=== PATIENT | female | born 1955 | race Caucasian/White ===

== ENCOUNTER 2020-06-07 16:00 | Outpatient (REF) | payer MEDICARE, SELFPAY ==
--- NOTE | 2020-06-07 | MM_ITS ---
EXAMINATION: MM SCREENING DIGITAL BREAST TOMOSYNTHESIS, BILATERAL CLINICAL INFORMATION: Screening. Asymptomatic. The lifetime risk of breast cancer based on the Tyrer-Cuzick Model is 5.1%. COMPARISON: Mammography: 04/16/2019 and studies dating back to 11/14/2009. TECHNIQUE: Digital breast tomosynthesis is performed in both the craniocaudal and mediolateral oblique views along with computer-aided detection (CAD). Synthesized 2D images are generated from the tomosynthesis. FINDINGS: The breasts are extremely dense, which lowers the sensitivity of mammography (ACR BI-RADS breast composition Category d). There is a stable parenchymal pattern within the right breast. Within the anterior aspect of the left breast on mediolateral oblique projection, there is a density about the inferior aspect measuring approximately 1.4 x 1.3 cm in size. There is also a density at nipple level measuring approximately 1.4 x 1.3 cm in size which may represent superimposition of fibroglandular tissue. Spot compression films of the left breast are recommended. MM/MM tomosynthesis screening BI IMPRESSION: Left breast densities for further evaluation as described. ASSESSMENT: BI-RADS 0: Incomplete - Need Additional Imaging Evaluation RECOMMENDATION: 1. Additional views of the left breast. 2. Targeted ultrasound if warranted after review of the additional views. 3. Radiology department staff will contact the patient for additional imaging. This patient's information was entered into a reminder system with a target due date for their next mammogram.
== END 2020-06-07 16:01 | disposition home or self-care (01) ==
LOC: HO.MAMMO 16:00
PROVIDERS: PCP Internal Medicine; Visit Provider Internal Medicine
DX: Z12.31 Encounter for screening mammogram for malignant neoplasm of breast (principal)
CPT/HCPCS: 77063; 77067

== ENCOUNTER 2020-07-12 08:31 | Outpatient (REF) | payer MEDICARE, SELFPAY ==
--- NOTE | 2020-07-12 08:38 | MM_ITS ---
EXAMINATION: MM DIGITAL DIAGNOSTIC MAMMOGRAM, LEFT US BREAST, LEFT CLINICAL INFORMATION: Abnormal screening mammogram. Density in the anterior aspect of the left breast. Density in the inferior aspect of the left breast. COMPARISON: Previous left mammography 06/07/20, 04/16/19, 03/31/18, 03/30/15 Imaging was obtained of the left breast(s). TECHNIQUE: Digital breast imaging including tomosynthesis is performed in Craniocaudal and mediolateral oblique projections using spot compression. Full field digital left mammography using digital breast Tomosynthesis in the medial lateral projection. Digital unilateral left breast tomosynthesis (3D mammography). Computer aided diagnosis was not utilized during the interpretation of this study. Targeted sonographic evaluation of the left breast was performed using a high frequency linear transducer. FINDINGS: Breast density: The breasts are extremely dense, which lowers the sensitivity of mammography (breast composition category: d) The focal asymmetry in the 5:00 position 3 cm from the left nipple becomes less prominent. The asymmetry in the medial left breast becomes less prominent. There is no suspicious calcification. No distortion. ULTRASOUND FINDINGS: The left breast anterior depth was examined extensively. No suspicious mass. No suspicious area of altered echotexture. No cyst was demonstrated. MM/MM tomosynthesis added views L IMPRESSION: The asymmetry demonstrated on mammography becomes less prominent. No suspicious sonographic abnormality. Recommend short interval diagnostic left mammography including digital breast Tomosynthesis ASSESSMENT: BI-RADS 3-probably benign RECOMMENDATIONS: Short interval follow-up in 6 months. Recommend diagnostic left mammography including digital breast Tomosynthesis in 6 months. Written and verbal communication of these findings and recommendations was given to the patient at the time of the examination.
== END 2020-07-12 08:32 | disposition home or self-care (01) ==
LOC: HO.MAMMO 08:31
PROVIDERS: Visit Provider Internal Medicine
DX: R92.2 Inconclusive mammogram (principal)
CPT/HCPCS: 76642; 77061; 77065

== ENCOUNTER 2020-07-12 15:14 | Outpatient (REF) | payer MEDICARE, SELFPAY | END 2020-07-12 15:15 | disposition home or self-care (01) | LOC: HO.LAB 15:14 | PROVIDERS: Visit Provider Internal Medicine | DX: Z20.828 Contact with and (suspected) exposure to other viral communicable diseases (principal) | CPT/HCPCS: C9803; U0003 ==

== ENCOUNTER 2020-08-02 07:42 | Day surgery (SDC) | payer MEDICARE, SELFPAY ==
[2020-07-25 10:03] VITALS: BMI 29.9
--- NOTE | 2020-08-01 09:24 | HO.ANESPROP2 ---
HPI - Anesthesia Eval Consult details Narrative: 65yo F for Colonoscopy PMFSH Past Medical History Medical History Osteopenia Surgical History Surgical History H/O oral surgery Hx of bilateral cataract extraction Hx of colonoscopy Hx of tubal ligation Social History Social History Smoking Status: Never smoker Advance Directives: No Advance Directives Information Provided: No Advance Directives on File: No Meds Allergies Allergy/AdvReac Type Severity Reaction Status Date / Time No Known Allergies Allergy Verified 07/24/20 15:19 Home Medications Medication Instructions Recorded Confirmed Type bisacodyl 2 tab PO BID 07/24/20 07/24/20 History peg 3350-electrolytes [GaviLyte-G] PO DIRECTED 07/24/20 History Exam Exam Date and Time: August 01, 2020 0924 Height,Weight and Vital Signs: Height 5 ft 5 in Weight 81.647 kg Assessment and Plan Assessment Anesthesia Assessment: Chart Reviewed
[2020-08-02 08:09] VITALS: BP 116/72; PULSE 75; RESP 18; TEMP 36.1; O2SAT 100
[2020-08-02] MEDS: Lactated Ringers 1,000 ML 100 ML IVCONT (08:20)
--- NOTE | 2020-08-02 08:20 | HO.ANESPROP2 ---
[facility] Past Medical History Medical History Osteopenia Surgical History Surgical History H/O oral surgery Hx of bilateral cataract extraction Hx of colonoscopy Hx of tubal ligation Social History Social History Smoking Status: Never smoker Advance Directives: No Advance Directives Information Provided: No Advance Directives on File: No Meds Allergies Allergy/AdvReac Type Severity Reaction Status Date / Time No Known Allergies Allergy Verified 07/24/20 15:19 Home Medications Medication Instructions Recorded Confirmed Type bisacodyl 2 tab PO BID 07/24/20 07/24/20 History peg 3350-electrolytes [GaviLyte-G] PO DIRECTED 07/24/20 History Exam Exam Date and Time: August 02, 2020 0820 Height,Weight and Vital Signs: Height 5 ft 5 in Weight 81.647 kg Last Vital Signs Temp 97.0 F 08/02/20 08:09 Pulse 75 08/02/20 08:09 Resp 18 08/02/20 08:09 BP 116/72 08/02/20 08:09 Pulse Ox 100 08/02/20 08:09 Airway Mallampati Class: III TM Dist: >3cm Neck ROM: Full Denture: Upper and Lower Heart: RRR Lungs: CTA
--- NOTE | 2020-08-02 09:12 | MHC.SHP ---
Pre-Procedural Eval Section B Chief Complaint: hx polyps Relevant Family History (Specify if Yes): No Relevant Social History: None Present Medications: see Short Stay Collaborative assessment Medical History: Significant History (osteopenia) History of Previous Operations: Relevant previous surgery/procedure and date(s) (H/O oral surgery Hx of bilateral cataract extraction Hx of colonoscopy Hx of tubal ligation) Allergies: Allergies Allergy/AdvReac Type Severity Reaction Status Date / Time No Known Allergies Allergy Verified 07/24/20 15:19 Review of Systems Sugical H&P ROS: Negative: Constitution, Cardiovascular, Respiratory, Neurological, Psychiatric, Hem-Onc, Allergic/Immunologic, Gastrointestinal, Genitourinary, Musculoskeletal, Integumentary, Endocrine and Eyes/Ears/Nose/Throat Exam Surgical H&P Exam: Normal: HEENT, Normal: Heart, Normal: Lungs, Normal: Extremities, Normal: Abdomen, Normal: Skin and Normal: Neurological Plan Diagnosis/Plan: Unchanged I have reviewed the history and physical and performed a pertinent physical examination on my patient. No changes have occurred unless specified.
--- NOTE | 2020-08-02 09:13 | PM.OP ---
Brief Operative Note Date of Service: 08/02/20 Pre-op diagnosis: hx of polyps Post-op diagnosis: same Procedure: s Operative Information Procedure Description: Colonoscopy COLONOSCOPY Instrument: Olympus variable stiffness pediatric scope 190L Colonoscopy Monitoring: Vital signs and clinical assessment, continuous EKG monitoring, Pulse oximetry, Carbon Dioxide monitoring and blood pressure monitoring were done throughout the procedure. Colon withdrawal time was 9 minutes. Procedure: The patient was placed in the left lateral decubitis position and pre-procedure medications were administered. After a digital rectal examination of the ano-rectum, the video colonoscope was inserted into the rectum and advanced through the colon to the cecum/TI. The colonoscope was slowly withdrawn in a retrograde panoramic fashion and the colon mucosa was carefully examined including a retroflexed view of the rectum. Findings and interventions are described below. Procedure Difficulty:easy Findings: Terminal Ileum-normal Cecum:normal Ascending Colon: 6-8 mm sessile polyp removed with forceps Transverse Colon -normal Descending Colon:normal Sigmoid Colon: normal Rectum: Retroflexion with small internal hemorrhoids, grade I Anorectum - normal Colon preparation: [place] Bowel Preparation Scale Right colon; 3 Transverse colon: 3 Left colon; 3 (0 = Unprepared colon segment with mucosa not seen due to solid stool that cannot be cleared. 1 = Portion of mucosa of the colon segment seen, but other areas of the colon segment not well seen due to staining, residual stool and/or opaque liquid. 2 = Minor amount of residual staining, small fragments of stool and/or opaque liquid, but mucosa of colon segment seen well. 3 = Entire mucosa of colon segment seen well with no residual staining, small fragments of stool or opaque liquid) Impression and Post Procedure Diagnosis: polyp internal hemorrhoids Plan: High fiber diet leaflet Avoid straining at stool, epsom salts and sitz bath, anusol supps or cream Repeat Colonoscopy in 5-7 years or earlier if clinically indicated Above findings were reviewed with the patient and relevant handouts were provided if indicated. Surgeon: Allen Raya MD Anesthesia: MAC Estimated blood loss (mL): 0 Condition: stable Disposition: PACU
[2020-08-02 09:45] VITALS: BP 124/65; PULSE 62; RESP 16; TEMP 36.1; O2SAT 98
[2020-08-02 10:00] VITALS: BP 133/64; PULSE 64; RESP 14; TEMP 36.3; O2SAT 99
--- NOTE | 2020-08-02 10:31 | HO.POSTANES ---
Post Anesthesia Evaluation Post Anesthesia Evaluation Vital Signs: Vital Signs Temp Pulse Resp BP Pulse Ox 08/02/20 10:00 97.4 F 64 14 133/64 99 08/02/20 09:45 97 F 62 16 124/65 98 08/02/20 08:09 97.0 F 75 18 116/72 100 Anesthesia: Monitored Mental Status: Awake Pain Control: Satisfactory Nausea/Vomiting: None Hydration: Adequate Anesthesia-Related Issues: No Anes. Related Issues
== END 2020-08-02 10:34 | disposition home or self-care (01) ==
PROVIDERS: PCP Internal Medicine; Visit Provider Internal Medicine Gastroenterology
PROC: 0DJD8ZZ Inspection of Lower Intestinal Tract, Via Natural or Artificial Opening Endoscopic (ICD-10-PCS; CPT 45378; principal; 2020-08-02 09:20)
DX: Z12.11 Encounter for screening for malignant neoplasm of colon (principal); Z86.010 Personal history of colon polyps; D12.2 Benign neoplasm of ascending colon; K64.0 First degree hemorrhoids; M85.80 Other specified disorders of bone density and structure, unspecified site; E66.9 Obesity, unspecified; Z98.51 Tubal ligation status
CPT/HCPCS: 45380; 88305

== ENCOUNTER 2021-01-30 12:01 | Outpatient (REF) | payer MEDICARE, SELFPAY ==
--- NOTE | ~2021-01-30 | MM_ITS ---
EXAMINATION: MM DIAGNOSTIC DIGITAL BREAST TOMOSYNTHESIS, LEFT CLINICAL INFORMATION: Six-month follow up question left breast masses. COMPARISON: Mammography: July 12, 2020 and studies dating back to November 24, 2013 TECHNIQUE: Digital breast tomosynthesis is performed in both the craniocaudal and mediolateral oblique views along with computer-aided detection (CAD). Synthesized 2D images are generated from the tomosynthesis. FINDINGS: The breasts are extremely dense, which lowers the sensitivity of mammography (ACR BI-RADS breast composition Category d). There are no significant masses, abnormal calcifications, or other abnormalities. No persistent suspicious nodules identified. Results are provided to the patient at time of visit by the technologist. MM/MM tomosynthesis diagnostic LT IMPRESSION: No specific mammographic evidence to suggest malignancy of the left breast. ASSESSMENT: BI-RADS 1: Negative RECOMMENDATION: Routine annual mammography screening, due in 6 months. This patient's information was entered into a reminder system with a target due date for their next mammogram.
== END 2021-01-30 12:02 | disposition home or self-care (01) ==
LOC: HO.MAMMO 12:01
PROVIDERS: PCP Internal Medicine; Visit Provider Internal Medicine
DX: R92.2 Inconclusive mammogram (principal)
CPT/HCPCS: 77061; 77065

== ENCOUNTER 2022-01-31 07:29 | Outpatient (REF) | payer MEDICARE, SELFPAY ==
--- NOTE | ~2022-01-31 | MM_ITS ---
EXAMINATION: MM SCREENING DIGITAL BREAST TOMOSYNTHESIS, BILATERAL CLINICAL INFORMATION: Screening. Asymptomatic. The lifetime risk of breast cancer based on the Tyrer-Cuzick Model is 4%. COMPARISON: Mammography: 01/30/2021, 07/12/2020, 06/07/2020, 04/16/2019, 03/31/2018, 03/30/2015; left breast ultrasound 07/12/2020 TECHNIQUE: Digital breast tomosynthesis is performed in both the craniocaudal and mediolateral oblique views along with computer-aided detection (CAD). Synthesized 2D images are generated from the tomosynthesis. Additional right CC view is provided. FINDINGS: The breasts are extremely dense, which lowers the sensitivity of mammography (ACR BI-RADS breast composition Category d). Breast tissue composition borders on heterogeneously dense. Parenchymal pattern is similar to prior studies. There is no developing density or interval mass or architectural abnormality. No abnormal calcifications. The axilla and skin contours are unremarkable. MM/MM tomosynthesis screening BI IMPRESSION: No mammographic evidence of malignancy. ASSESSMENT: BI-RADS 1: Negative RECOMMENDATION: Routine annual mammography screening. This patient's information was entered into a reminder system with a target due date for their next mammogram.
== END 2022-01-31 07:30 | disposition home or self-care (01) ==
LOC: HO.MAMMO 07:29
PROVIDERS: Visit Provider Surgery
DX: Z12.31 Encounter for screening mammogram for malignant neoplasm of breast (principal)
CPT/HCPCS: 77063; 77067

== ENCOUNTER 2023-02-11 07:55 | Outpatient (REF) | payer MEDICARE, SELFPAY ==
--- NOTE | ~2023-02-11 | MM_ITS ---
EXAMINATION: MM SCREENING DIGITAL BREAST TOMOSYNTHESIS, BILATERAL CLINICAL INFORMATION: Screening. Asymptomatic. The lifetime risk of breast cancer based on the Tyrer-Cuzick Model is 7.2%. COMPARISON: Mammography: This study is compared with prior exams dating back to 2019. TECHNIQUE: Digital breast tomosynthesis is performed in both the craniocaudal and mediolateral oblique views along with computer-aided detection (CAD). Synthesized 2D images are generated from the tomosynthesis. FINDINGS: The breasts are heterogeneously dense, which may obscure small masses (ACR BI-RADS breast composition Category c). There are no significant masses, abnormal calcifications, or other abnormalities. MM/MM tomosynthesis screening BI IMPRESSION: No mammographic evidence of malignancy. ASSESSMENT: BI-RADS BI-RADS 1 - Negative RECOMMENDATION: Routine annual mammography screening. 1 year F/U This examination should not preclude the clinical evaluation of a suspicious palpable abnormality. This patient's information was entered into a reminder system with a target due date for their next mammogram.
== END 2023-02-11 07:56 | disposition home or self-care (01) ==
LOC: HO.MAMMO 07:55
PROVIDERS: PCP Internal Medicine; Visit Provider Internal Medicine
DX: Z12.31 Encounter for screening mammogram for malignant neoplasm of breast (principal)
CPT/HCPCS: 77063; 77067

== ENCOUNTER → 2023-02-11 08:15 | Outpatient (BNV) | payer MEDICARE, SELFPAY | PROVIDERS: PCP Internal Medicine; Visit Provider Radiology Diagnostic Radiology | DX: Z12.31 Encounter for screening mammogram for malignant neoplasm of breast (principal) | CPT/HCPCS: 77063; 77067 ==